=== PATIENT | female | born 1965 | race Caucasian/White ===

== ENCOUNTER 2023-12-25 11:45 | Outpatient (AMB) | payer BC, SELFPAY ==
--- NOTE | 2023-12-25 12:04 | HO.NEPHOV ---
HPI HPI Comments History of Present Illness Details I would the delight of seeing Mansi in consultation for proteinuria. She has hypertension for close to 28 years. She had been on losartan and metoprolol but her metoprolol had been change verapamil a while ago. She is thought to fatty liver. She has high BMI and has been struggling with weight. She has been having proteinuria for some time. Her renal functions have been stable. She does not have any microscopic hematuria, nephrolithiasis, peripheral arterial disease, renal artery stenosis, carotid stenosis, CVA, coronary artery disease, congestive heart failure or CVA. She denies any history of new bone or back pain or renal calculus. She denies any photosensitivity, skin rashes, epistaxis, recurrent sore throat, eye symptoms, oral ulcers, difficulty swallowing, nausea, vomiting, diarrhea, paroxysmal nocturnal dyspnea, orthopnea or pedal edema. She monitors her blood pressure closely and has been close to goal. She has no history of preeclampsia during her pregnancies. She has no family history proteinuria. She is concerned about her persistent proteinuria. She has been changing her dietary habits, trying to lose weight and exercise. [facility] Medical History (Updated 12/25/23 @ 14:51 by Agapito Ruby MD) Hypertension Persistent proteinuria Family History (Updated 12/25/23 @ 12:12 by Mary Alas MA) Father Diabetes Hypertension Heart disease Mother Hypertension Social History (Updated 12/25/23 @ 12:12 by Mary Alas MA) Alcohol intake: current Comment: Occasionally Patient Tobacco Use Status: Never used Tobacco Vital Signs 12/25/23 12:08 Height 5 ft 9 in Weight 278 lb BMI 41.0 BP 140/80 H Blood Pressure Location Lt brachial Position Sitting Pulse 87 Pulse Source Pulse Oximeter Pulse Oximetry (%) 97 Oxygen Delivery Method Room Air Physical Exam Vital Signs: Last Vital Signs Pulse 87 12/25/23 12:08 BP 140/80 H 12/25/23 12:08 Pulse Ox 97 12/25/23 12:08 Oxygen Delivery Method Room Air 12/25/23 12:08 BMI result Body Mass Index 41.0 Const General: comfortable and no acute distress Orientation/consciousness: patient oriented x3 HEENT Head: Yes normocephalic Mouth: Normal oral and palatal mucosa present Eyes EOM: EOMs intact bilaterally Neck Neck: Yes supple Resp Auscultation: clear to auscultation bilaterally Cardio Jugular venous distension: no JVD Rate: regular rate GI Palpation (GI): Soft to palpation Auscultation: normal bowel sounds General: Yes no CVA tenderness Back/Spine/Pelvis Back: no CVA tenderness Skin General skin exam: no rashes or lesions noted Neuro General: patient oriented x3 and moves all extremities Extrem General: Yes no pedal edema Assessment & Plan Assessment & Plan (1) Hypertension: Code(s): I10 - Essential (primary) hypertension Qualifiers: Hypertension type: primary hypertension Qualified Code(s): I10 - Essential (primary) hypertension (2) Persistent proteinuria: Code(s): R80.1 - Persistent proteinuria, unspecified Plan Mansi has persistent proteinuria. Her renal functions have been stable. She is on losartan and verapamil. I asked her to continue her current dose of losartan and change the verapamil to diltiazem 240 mg daily to take advantage of its anti proteinuric effects. She clearly needs to lose weight. Her proteinuria likely is either from secondary FSGS from obesity or due to longstanding hypertension. I have ordered blood work and urine studies including 24 hour urine for protein. I also have arranged ultrasound for kidney. Based on the data, she may need a renal biopsy, which I briefly discussed with the patient. She avoids nonsteroidal anti-inflammatories and maintain good hydration. I did not make any medication changes today. More than 50% of the time spent discussing about the etiologies, investigations and management strategies. She may need gastric sleeve surgery. Further management is pending evolving data. Follow-up appointment given. Answered all questions Orders: Orders Creatinine Today I10 - Essential (primary) hypertension, R80.1 - Persistent proteinuria, unspecified Calcium Today I10 - Essential (primary) hypertension, R80.1 - Persistent proteinuria, unspecified Anti DNA DS Antibody Today I10 - Essential (primary) hypertension, R80.1 - Persistent proteinuria, unspecified Myeloperoxidase Antibody Today I10 - Essential (primary) hypertension, R80.1 - Persistent proteinuria, unspecified Proteinase 3 PR3 Antibodies Today I10 - Essential (primary) hypertension, R80.1 - Persistent proteinuria, unspecified Immunofixation Pnl, Serum Today I10 - Essential (primary) hypertension, R80.1 - Persistent proteinuria, unspecified Phospholipase A2 Receptor Pnl Today I10 - Essential (primary) hypertension, R80.1 - Persistent proteinuria, unspecified Immunofixation, Random Urine Today I10 - Essential (primary) hypertension, R80.1 - Persistent proteinuria, unspecified US renal BI Today I10 - Essential (primary) hypertension, R80.1 - Persistent proteinuria, unspecified Hepatitis B Surface Antigen Today I10 - Essential (primary) hypertension, R80.1 - Persistent proteinuria, unspecified Hepatitis B Core Antibody Today I10 - Essential (primary) hypertension, R80.1 - Persistent proteinuria, unspecified Blood Urea Nitrogen Today I10 - Essential (primary) hypertension, R80.1 - Persistent proteinuria, unspecified Electrolytes Today I10 - Essential (primary) hypertension, R80.1 - Persistent proteinuria, unspecified Complement C4 Today I10 - Essential (primary) hypertension, R80.1 - Persistent proteinuria, unspecified Complement C3 Today I10 - Essential (primary) hypertension, R80.1 - Persistent proteinuria, unspecified Protein, 24 Hr Urine Group Today I10 - Essential (primary) hypertension, R80.1 - Persistent proteinuria, unspecified Medications: New diltiazem HCl ER 240 mg PO DAILY 30 days 30 caps 3RF Coding Level of Care Code New Pt Level 4 (25574) Diagnoses Primary hypertension I10 Hypertension type: primary hypertension Persistent proteinuria R80.1 Results Reviewed Nephrology Results: No Data to Display
[2023-12-25 12:08] VITALS: BP 140/80; PULSE 87; O2SAT 97; BMI 41.0
== END 2023-12-25 13:02 | disposition home or self-care (01) ==
PROVIDERS: PCP Internal Medicine; Visit Provider Internal Medicine Nephrology
DX: I10 Essential (primary) hypertension (principal); R80.1 Persistent proteinuria, unspecified
CPT/HCPCS: 99204

== ENCOUNTER → 2023-12-25 11:45 | Outpatient (BNVA) | payer BC, SELFPAY | PROVIDERS: PCP Internal Medicine; Visit Provider Internal Medicine Nephrology ==

== ENCOUNTER 2023-12-29 08:41 | Outpatient (REF) | payer BC, SELFPAY ==
--- NOTE | ~2023-12-29 | US_ITS ---
EXAMINATION: US RETROPERITONEAL LIMITED (RENAL ONLY) CLINICAL INFORMATION: Essential hypertension and proteinuria. COMPARISON: None available. TECHNIQUE: Real-time ultrasound of the bilateral kidneys, permanent documented images obtained FINDINGS: RIGHT KIDNEY: 14.4 x 5.8 x 6.7 cm (SAG x AP x TRV). Diffuse increased echogenicity to the renal parenchyma. Right kidney is lobulated with regions of cortical thinning. Prominent perinephric fat. No hydronephrosis or calculi. 6.7 x 4.6 x 7.9 cm upper pole cyst is seen. LEFT KIDNEY: 17 x 7.4 x 7.0 cm (SAG x AP x TRV). Diffuse increased echogenicity to the renal parenchyma. Left kidney is lobulated with areas of cortical thinning. No hydronephrosis or renal calculi. Multiple renal cysts are seen, in the upper pole measuring 1.2 x 1.4 x 2.2 cm and in the lower pole, 2.5 x 1.7 x 1.9 cm and 1.8 x 1.3 x 1.4 cm. US/US renal BI IMPRESSION: Enlarged, lobulated, echogenic kidneys with asymmetric cortical thinning/scarring bilaterally. Bilateral renal cysts.
== END 2023-12-29 08:42 | disposition home or self-care (01) ==
LOC: HO.HMGCX 08:41
PROVIDERS: PCP Internal Medicine; Visit Provider Internal Medicine Nephrology
DX: I10 Essential (primary) hypertension (principal); R80.1 Persistent proteinuria, unspecified
CPT/HCPCS: 76775

== ENCOUNTER 2024-01-25 09:10 | Outpatient (REF) | payer BC, SELFPAY ==
[2024-01-25 10:52] LABS: Protein mg/dL 36 mg/dL
[2024-01-25 10:55] LABS: Anion Gap 13 (12-20); Blood Urea Nitrogen 13 mg/dL (9-16); Calcium 9.7 mg/dL (8.4-10.2); Carbon Dioxide 27 mmol/L (22-29); Chloride 104 mmol/L (96-108); Estimated Glomerular Filt Rate > 60; Sodium 140 mmol/L (135-145)
[2024-01-25 13:22] LABS: Creatinine, 24Hr Urine 1.7 G/Day (1.0-2.0); Protein 24 Hr Urine 972 mg/Day (<150); Total Volume 24 Hour Urine 2700 mL
[2024-01-26 04:56] LABS: HBc Num1 0.12 S/CO (0.00-0.79); HBsAGNum1 0.28 S/CO (0.00-0.99); Hepatitis B Core Antibody Nonreactive (Nonreactive); Hepatitis B Surface Antigen Negative (Negative)
[2024-01-26 10:04] LABS: Complement C3 163 mg/dL (83-193)
[2024-01-27 14:28] LABS: IgA 260 mg/dL (47-310); IgG 1284 mg/dL (600-1640); IgM 136 mg/dL (50-300)
[2024-01-28 14:09] LABS: Anti DNA DS Antibody <1 IU/mL; Myeloperoxidase Antibody <1.0 AI; Proteinase 3 PR3 Antibodies <1.0 AI
[2024-01-29 00:23] LABS: Phospholipase A2 IgG ELISA <4 RU/mL; Phospholipase A2 IgG IFA NEGATIVE (NEGATIVE)
== END 2024-01-25 09:11 | disposition home or self-care (01) ==
LOC: HO.LAB 09:10
PROVIDERS: PCP Internal Medicine; Visit Provider Internal Medicine Nephrology
DX: I10 Essential (primary) hypertension (principal); R80.1 Persistent proteinuria, unspecified
CPT/HCPCS: 80051; 82310; 82565; 82784; 83520; 84156; 84520; 86021; 86160; 86225; 86255; 86334; 86335; 86704; 87340

== ENCOUNTER 2024-02-05 14:51 | Outpatient (AMB) | payer BC, SELFPAY ==
--- NOTE | 2024-02-05 15:02 | HO.NEPHOV ---
HPI HPI Comments History of Present Illness Details I would the delight of seeing Mansi in follow up of her proteinuria. She has H/O hypertension for close to 28 years. She had been on losartan and metoprolol but her metoprolol had been change verapamil which was changed to Diltiazem at the last visit. She is thought to fatty liver. She has high BMI and has been struggling with weight. She has been having proteinuria for some time. Her renal functions have been stable. She does not have any microscopic hematuria, nephrolithiasis, peripheral arterial disease, renal artery stenosis, carotid stenosis, CVA, coronary artery disease, congestive heart failure or CVA. She denies any history of new bone or back pain or renal calculus. She denies any photosensitivity, skin rashes, epistaxis, recurrent sore throat, eye symptoms, oral ulcers, difficulty swallowing, nausea, vomiting, diarrhea, paroxysmal nocturnal dyspnea, orthopnea or pedal edema. She monitors her blood pressure closely and has been close to goal. She has no history of preeclampsia during her pregnancies. She has no family history proteinuria. She is concerned about her persistent proteinuria. She has been changing her dietary habits, trying to lose weight and exercise. [facility] Medical History (Updated 12/25/23 @ 14:51 by Agapito Ruby MD) Hypertension Persistent proteinuria Family History Father Diabetes Hypertension Heart disease Mother Hypertension Social History Alcohol intake: current Comment: Occasionally Patient Tobacco Use Status: Never used Tobacco Vital Signs 02/05/24 15:03 Height 5 ft 9 in Weight 271 lb 2 oz BMI 40.0 BP 140/70 H Blood Pressure Location Rt brachial Position Sitting Pulse 63 Pulse Source Pulse Oximeter Pulse Oximetry (%) 96 Oxygen Delivery Method Room Air Physical Exam Vital Signs: Last Vital Signs Pulse 63 02/05/24 15:03 BP 140/70 H 02/05/24 15:03 Pulse Ox 96 02/05/24 15:03 Oxygen Delivery Method Room Air 02/05/24 15:03 BMI result Body Mass Index 40.0 Const General: comfortable and no acute distress Orientation/consciousness: patient oriented x3 HEENT Head: Yes normocephalic Mouth: Normal oral and palatal mucosa present Eyes EOM: EOMs intact bilaterally Neck Neck: Yes supple Resp Auscultation: clear to auscultation bilaterally Cardio Jugular venous distension: no JVD Rate: regular rate GI Palpation (GI): Soft to palpation Auscultation: normal bowel sounds General: Yes no CVA tenderness Back/Spine/Pelvis Back: no CVA tenderness Skin General skin exam: no rashes or lesions noted Neuro General: patient oriented x3 and moves all extremities Extrem General: Yes no pedal edema Assessment & Plan Assessment & Plan (1) Hypertension: Code(s): I10 - Essential (primary) hypertension Qualifiers: Hypertension type: primary hypertension Qualified Code(s): I10 - Essential (primary) hypertension (2) Persistent proteinuria: Code(s): R80.1 - Persistent proteinuria, unspecified Plan Mansi has persistent proteinuria. Last 24 hour urine collection showed 972 mg of protein in 24 hours. Her renal functions have been stable. She is on losartan and diltiazem. Her proteinuria workup so far has been negative. She may be having secondary FSGS and hypertensive nephrosclerosis. She likely will need a renal biopsy which I discussed in detail. We shall decide about it after the next random urine protein creatinine ratio. She clearly needs to lose weight. Ultrasound for kidney was unremarkable. She avoids nonsteroidal anti-inflammatories and maintain good hydration. I did not make any medication changes today. More than 50% of the time spent discussing about the etiologies, investigations and management strategies. She may need gastric sleeve surgery. Further management is pending evolving data. Follow-up appointment given. Answered all questions Orders: Orders Protein Creatinine Ratio, Ur 02/05/24 I10 - Essential (primary) hypertension, R80.1 - Persistent proteinuria, unspecified Coding Level of Care Code Est Pt Level 4 (80264) Diagnoses Primary hypertension I10 Hypertension type: primary hypertension Persistent proteinuria R80.1 Results Reviewed Nephrology Results: Sodium 140 mmol/L (135-145) 01/25/24 Potassium 4.0 mmol/L (3.3-5.1) 01/25/24 Chloride 104 mmol/L (96-108) 01/25/24 Carbon Dioxide 27 mmol/L (22-29) 01/25/24 BUN 13 mg/dL (9-16) 01/25/24 Creatinine 0.84 mg/dL (0.5-1.4) 01/25/24 Calcium 9.7 mg/dL (8.4-10.2) 01/25/24 Renal US 12/29/23
[2024-02-05 15:03] VITALS: BP 140/70; PULSE 63; O2SAT 96; BMI 40.0
== END 2024-02-05 15:40 | disposition home or self-care (01) ==
PROVIDERS: PCP Internal Medicine; Visit Provider Internal Medicine Nephrology
DX: I10 Essential (primary) hypertension (principal); R80.1 Persistent proteinuria, unspecified
CPT/HCPCS: 99214

== ENCOUNTER → 2024-02-05 14:51 | Outpatient (BNVA) | payer BC, SELFPAY | PROVIDERS: PCP Internal Medicine; Visit Provider Internal Medicine Nephrology ==

== ENCOUNTER 2024-05-12 08:04 | Outpatient (REF) | payer BC, SELFPAY ==
[2024-05-12 09:00] LABS: Creatinine Urine 114.37 mg/dL; Protein/Creatinine Ratio, Ur 0.86 (<0.2); Total Protein Urine Random 98 mg/dL (<12)
== END 2024-05-12 08:05 | disposition home or self-care (01) ==
LOC: HO.LAB 08:04
PROVIDERS: PCP Internal Medicine; Visit Provider Internal Medicine Nephrology
DX: I10 Essential (primary) hypertension (principal); R80.1 Persistent proteinuria, unspecified
CPT/HCPCS: 82570; 84156

== ENCOUNTER 2024-05-20 14:45 | Outpatient (AMB) | payer BC, SELFPAY ==
[2024-05-20 14:57] VITALS: BP 130/72; PULSE 88; O2SAT 96; BMI 40.5
--- NOTE | 2024-05-20 14:57 | HO.NEPHOV_ITS ---
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 She has H/O hypertension for close to 28 years. She had been on losartan and metoprolol but her metoprolol had been change verapamil which was changed to Diltiazem at the last visit. She is thought to fatty liver. She has high BMI and has been struggling with weight. She has been having proteinuria for some time. Her renal functions have been stable. She does not have any microscopic hematuria, nephrolithiasis, peripheral arterial disease, renal artery stenosis, carotid stenosis, CVA, coronary artery disease, congestive heart failure or CVA. She denies any history of new bone or back pain or renal calculus. She denies any photosensitivity, skin rashes, epistaxis, recurrent sore throat, eye symptoms, oral ulcers, difficulty swallowing, nausea, vomiting, diarrhea, paroxysmal nocturnal dyspnea, orthopnea or pedal edema. She monitors her blood pressure closely and has been close to goal. She has no history of preeclampsia during her pregnancies. She has no family history proteinuria. She is concerned about her persistent proteinuria. She has been changing her dietary habits, trying to lose weight and exercise [facility] Medical History (Updated 12/25/23 @ 14:51 by Agapito Ruby MD) Hypertension Persistent proteinuria Family History Father Diabetes Hypertension Heart disease Mother Hypertension Social History Alcohol intake: current Comment: Occasionally Patient Tobacco Use Status: Never used Tobacco Physical Exam Vital Signs: BMI result Body Mass Index 40.5 Const General: comfortable and no acute distress Orientation/consciousness: patient oriented x3 HEENT Head: Yes normocephalic Mouth: Normal oral and palatal mucosa present Eyes EOM: EOMs intact bilaterally Neck Neck: Yes supple Resp Auscultation: clear to auscultation bilaterally Cardio Jugular venous distension: no JVD Rate: regular rate GI Palpation (GI): Soft to palpation Auscultation: normal bowel sounds General: Yes no CVA tenderness Back/Spine/Pelvis Back: no CVA tenderness Skin General skin exam: no rashes or lesions noted Neuro General: patient oriented x3 and moves all extremities Extrem General: Yes no pedal edema Results Reviewed Nephrology Results: Sodium 140 mmol/L (135-145) 01/25/24 Potassium 4.0 mmol/L (3.3-5.1) 01/25/24 Chloride 104 mmol/L (96-108) 01/25/24 Carbon Dioxide 27 mmol/L (22-29) 01/25/24 BUN 13 mg/dL (9-16) 01/25/24 Creatinine 0.84 mg/dL (0.5-1.4) 01/25/24 Calcium 9.7 mg/dL (8.4-10.2) 01/25/24 Urine Creatinine 114.37 mg/dL 05/12/24 Protein/Creatinin Ratio 0.86 (<0.2) H 05/12/24 Renal US 12/29/23 Assessment & Plan Assessment & Plan (1) Hypertension: Code(s): I10 - Essential (primary) hypertension Category: Medical Qualifiers: Hypertension type: primary hypertension Qualified Code(s): I10 - Essential (primary) hypertension (2) Persistent proteinuria: Code(s): R80.1 - Persistent proteinuria, unspecified Category: Medical Plan Mansi has persistent proteinuria. Last 24 hour urine collection showed 972 mg of protein in 24 hours. Recent UP/C ratio was 0.86 Her renal functions have been stable. She is on losartan and diltiazem. Her proteinuria workup so far has been negative. She may be having secondary FSGS and hypertensive nephrosclerosis. She likely will need a renal biopsy which I discussed in detail. We shall decide about it after the next random urine protein creatinine ratio. She clearly needs to lose weight. Ultrasound for kidney was unremarkable. She avoids nonsteroidal anti-inflammatories and maintain good hydration. I i ncreased her Diltiazem to 360 mg daily( 240 mg AM and 120 mg PM). I did not make any other medication changes today. Further management is pending evolving data. Follow-up appointment given. Answered all questions Orders: Orders Creatinine Today I10 - Essential (primary) hypertension, R80.1 - Persistent proteinuria, unspecified Electrolytes Today I10 - Essential (primary) hypertension, R80.1 - Persistent proteinuria, unspecified Protein Creatinine Ratio, Ur Today I10 - Essential (primary) hypertension, R80.1 - Persistent proteinuria, unspecified Blood Urea Nitrogen Today I10 - Essential (primary) hypertension, R80.1 - Persistent proteinuria, unspecified Medications: Changed From diltiazem HCl ER (Tiadylt ER) 240 mg PO DAILY 90 days 90 caps 3RF To diltiazem HCl ER 360 mg (3 x 120 mg) PO DAILY 90 days 270 caps 3RF Coding Level of Care Code Est Pt Level 4 (47982) Diagnoses Primary hypertension I10 Hypertension type: primary hypertension Persistent proteinuria R80.1
== END 2024-05-20 15:24 | disposition home or self-care (01) ==
PROVIDERS: PCP Internal Medicine; Visit Provider Internal Medicine Nephrology
DX: I10 Essential (primary) hypertension (principal); R80.1 Persistent proteinuria, unspecified
CPT/HCPCS: 99214

== ENCOUNTER → 2024-05-20 14:45 | Outpatient (BNVA) | payer BC, SELFPAY | PROVIDERS: PCP Internal Medicine; Visit Provider Internal Medicine Nephrology ==

== ENCOUNTER 2024-11-01 09:09 | Outpatient (REF) | payer BC, SELFPAY ==
[2024-11-01 11:34] LABS: Anion Gap 13 (12-20); Blood Urea Nitrogen 10 mg/dL (9-16); Carbon Dioxide 27 mmol/L (22-29); Chloride 105 mmol/L (96-108); Estimated Glomerular Filt Rate > 60; Potassium 3.9 mmol/L (3.3-5.1); Sodium 141 mmol/L (135-145)
[2024-11-01 11:45] LABS: Creatinine Urine 166.16 mg/dL; Protein/Creatinine Ratio, Ur 1.17 (<0.2); Total Protein Urine Random 194 mg/dL (<12)
== END 2024-11-01 09:10 | disposition home or self-care (01) ==
LOC: HO.LAB 09:09
PROVIDERS: PCP Internal Medicine; Visit Provider Internal Medicine Nephrology
DX: R80.1 Persistent proteinuria, unspecified (principal); I10 Essential (primary) hypertension
CPT/HCPCS: 36415; 80051; 82565; 82570; 84156; 84520

== ENCOUNTER 2024-11-09 15:56 | Outpatient (AMB) | payer BC, SELFPAY ==
[2024-11-09 16:25] VITALS: BP 110/70; PULSE 84; O2SAT 97; BMI 38.9
--- NOTE | 2024-11-09 16:25 | HO.NEPHOV ---
Vital Signs 11/09/24 16:25 Height 5 ft 9 in Weight 263 lb 6 oz BMI 38.9 BP 110/70 Blood Pressure Location Rt brachial Position Sitting Pulse 84 Pulse Source Pulse Oximeter Pulse Oximetry (%) 97 Oxygen Delivery Method Room Air Intake Visit Reasons: Hypertension Communications Consultant Required: No Accompanied by: Self / Same As Patient Allergies No Known Allergies Allergy (Verified 11/09/24 16:27) HPI Comments Details: Mansi in follow up of her proteinuria. She has H/O hypertension for close to 29 years. She had been on losartan and metoprolol but her metoprolol had been change verapamil which was changed to Diltiazem at the last visit. She is thought to fatty liver. She has high BMI and has been struggling with weight. She has been started on Mounjaro and had some weight loss but has been having some GI side effects. She has been having proteinuria for some time. Her renal functions have been stable. She does not have any microscopic hematuria, nephrolithiasis, peripheral arterial disease, renal artery stenosis, carotid stenosis, CVA, coronary artery disease, congestive heart failure or CVA. She denies any history of new bone or back pain or renal calculus. She denies any photosensitivity, skin rashes, epistaxis, recurrent sore throat, eye symptoms, oral ulcers, difficulty swallowing, nausea, vomiting, diarrhea, paroxysmal nocturnal dyspnea, orthopnea or pedal edema. She monitors her blood pressure closely and has been close to goal. She has no history of preeclampsia during her pregnancies. She has no family history proteinuria. She is concerned about her persistent proteinuria. She has been changing her dietary habits, trying to lose weight and exercise better [facility] Medical History (Updated 12/25/23 @ 14:51 by Agapito Ruby MD) Hypertension Persistent proteinuria Family History Father Diabetes Hypertension Heart disease Mother Hypertension Social History Alcohol intake: current Comment: Occasionally Patient Tobacco Use Status: Never used Tobacco Review of Systems Const All systems reviewed & are unremarkable except as noted in HPI and below Physical Exam Vital Signs: Last Vital Signs Pulse 84 11/09/24 16:25 BP 110/70 11/09/24 16:25 Pulse Ox 97 11/09/24 16:25 Oxygen Delivery Method Room Air 11/09/24 16:25 BMI result Body Mass Index 38.9 Const General: comfortable and no acute distress Orientation/consciousness: patient oriented x3 HEENT Head: Yes normocephalic Mouth: Normal oral and palatal mucosa present Eyes EOM: EOMs intact bilaterally Neck Neck: Yes supple Resp Auscultation: clear to auscultation bilaterally Cardio Jugular venous distension: no JVD Rate: regular rate GI Palpation (GI): Soft to palpation Auscultation: normal bowel sounds General: Yes no CVA tenderness Back/Spine/Pelvis Back: no CVA tenderness Skin General skin exam: no rashes or lesions noted Neuro General: patient oriented x3 and moves all extremities Extrem General: Yes no pedal edema Results Reviewed Nephrology Results: Sodium 141 mmol/L (135-145) 11/01/24 Potassium 3.9 mmol/L (3.3-5.1) 11/01/24 Chloride 105 mmol/L (96-108) 11/01/24 Carbon Dioxide 27 mmol/L (22-29) 11/01/24 BUN 10 mg/dL (9-16) 11/01/24 Creatinine 0.88 mg/dL (0.5-1.4) 11/01/24 Calcium 9.7 mg/dL (8.4-10.2) 01/25/24 Urine Creatinine 166.16 mg/dL 11/01/24 Protein/Creatinin Ratio 1.17 (<0.2) H 11/01/24 Renal US 12/29/23 Assessment & Plan Assessment & Plan (1) Persistent proteinuria: Code(s): R80.1 - Persistent proteinuria, unspecified Category: Medical (2) Hypertension: Code(s): I10 - Essential (primary) hypertension Category: Medical Qualifiers: Hypertension type: primary hypertension Qualified Code(s): I10 - Essential (primary) hypertension Plan Mansi has persistent proteinuria. Last UP/C ratio was over a gram. Her renal functions have been stable. She is on losartan and diltiazem. Her proteinuria workup so far has been negative. She may be having secondary FSGS and hypertensive nephrosclerosis. I ordered a renal biopsy which I discussed in detail. She clearly needs to lose more weight. Ultrasound for kidney was unremarkable. She avoids nonsteroidal anti-inflammatories and maintain good hydration. She can continue current dose of Diltiazem 360 mg daily( 240 mg AM and 120 mg PM). I did not make any other medication changes today. Answered all questions Orders: Orders Complete Blood Count Auto Diff 11/09/24 R80.1 - Persistent proteinuria, unspecified Prothrombin Time INR 11/09/24 R80.1 - Persistent proteinuria, unspecified CT biopsy renal RT 11/09/24 I10 - Essential (primary) hypertension, R80.1 - Persistent proteinuria, unspecified Coding Level of Care Code Est Pt Level 4 (06170) Diagnoses Persistent proteinuria R80.1 Primary hypertension I10 Hypertension type: primary hypertension
== END 2024-11-09 16:56 | disposition home or self-care (01) ==
PROVIDERS: PCP Internal Medicine; Visit Provider Internal Medicine Nephrology
DX: R80.1 Persistent proteinuria, unspecified (principal); I10 Essential (primary) hypertension
CPT/HCPCS: 99214

== ENCOUNTER → 2024-11-09 15:56 | Outpatient (BNVA) | payer BC, SELFPAY | PROVIDERS: PCP Internal Medicine; Visit Provider Internal Medicine Nephrology ==

== ENCOUNTER 2024-12-16 07:52 | Outpatient (REF) | payer BC, SELFPAY ==
--- OUTSIDE RECORDS SUMMARY | 2024-12-16 07:55 | XMS_ITS | Clinical Summary ---
Author Organization [facility] ity Address [address] [place] [address] Care Team Providers Care Blasting Cap Assembler Name Role Phone Unavailable Primary Care Provider Unavailabl e Social History Tobacco Use Types Packs/Day Years Used Date Smoking Tobacco: Never Assessed Comments Unknown Sex and Gender Information Value Date Recorded Sex Assigned at Not on file Legal Sex Female 8:12 AM EST Gender Identity Not on file Sexual Orientation Not on file Plan of Treatment Health Maintenance Due Date Last Done Comments Breast Cancer Screening 1964 DTaP,Tdap,and Td Vaccines (1 - Tdap) 1983 Cervical Cancer Screening: P ap Smear 1985 Zoster Vaccines (1 of 2) 2014 Colorectal Cancer Screening: Colonoscopy 10/05/2022 Depression Screening 10/05/2022 HIV Screening 10/05/2022 Hepatitis C Screening 10/05/2022 Social Influencers of Health Screening 10/05/2022 COVID-19 Vaccine ( - 2023-2 5 season) 2024 Influenza Vaccine (#1) 2024 RSV Immunization Patients 60 + Years Old (1 - 1-dose 75+ series) 2039 HIB Vaccines Aged Out No longer eligi ble based on patient's age to complete this topic HPV Vaccines Aged Out No longer eligi ble based on patient's age to complete this topic Hepatitis A Vaccines Aged Out No long er eligible based on patient's age to complete this topic Hepatitis B Vaccines Aged Out No long er eligible based on patient's age to complete this topic IPV Vaccines Aged Out No longer eligi ble based on patient's age to complete this topic MMR Vaccines Aged Out No longer eligi ble based on patient's age to complete this topic Meningococcal ACWY Vaccine Aged Out N o longer eligible based on patient's age to complete this topic Pneumococcal Vaccine: Pediat rics (0 to 5 Years) and At-Risk Patients (6 to 64 Years) Aged Out No longer eligible b ased on patient's age to complete this topic RSV Immunization Patients Un macy 20 months Aged Out No longer eligible b ased on patient's age to complete this topic Varicella Vaccines Aged Out No longer eligible based on patient's age to complete this topic
[2024-12-16 08:02] LABS: MANUAL DIFF FLAG NO
[2024-12-16 08:37] LABS: Basophils Percent Auto 0.4 % (0-2); Eosinophils Absolute Auto 0.4 X10*3/uL (0.0-0.4); Eosinophils Percent Auto 4.2 % (0-4); Hematocrit 43.6 % (37.0-47.0); Hemoglobin 14.8 g/dl (12.0-16.0); Imm Gran Abs Auto 0.03 X10*3/uL (0.00-0.03); Imm Gran Pct Auto 0.4 % (0.0-0.4); Lymphocytes Absolute Auto 4.2 X10*3/uL (1.2-4.9); Lymphocytes Percent Auto 49.6 % (20-40); Mean Corpuscular HGB Conc 33.9 g/dl (31.0-35.0); Mean Corpuscular Volume 88.3 fL (80.0-98.0); Mean Platelet Volume 9.9 fL (9.4-12.3); Monocytes Absolute Auto 0.8 X10*3/uL (0.1-1.2); Monocytes Percent Auto 8.9 % (2-11); Neutrophils Absolute Auto 3.1 x10*3/uL (2.0-8.3); Neutrophils Percent Auto 36.5 % (45-73); Platelet Count 301 X10*3/uL (160-400); Red Blood Count 4.94 X10*6/uL (4.20-5.50); Red Cell Distribution Width 12.6 % (11.0-16.0); White Blood Count 8.4 X10*3/uL (4.8-10.8)
[2024-12-16 08:43] LABS: INTERNATIONAL NORM RATIO 0.9 (0.9-1.1); Prothrombin Time 10.5 SEC (10.9-12.4)
== END 2024-12-16 07:53 | disposition home or self-care (01) ==
LOC: HO.LAB 07:52
PROVIDERS: PCP Internal Medicine; Visit Provider Internal Medicine Nephrology
DX: R80.1 Persistent proteinuria, unspecified (principal)
CPT/HCPCS: 36415; 85025; 85610

== ENCOUNTER 2024-12-26 08:32 | Day surgery (SDC) | payer BC, SELFPAY ==
[2024-12-26] VITALS (15 sets, daily range): BP systolic 106–137; BP diastolic 60–80; PULSE 67–75; RESP 15–20; TEMP 36.3–36.6; O2SAT 93–100; BMI 17.3
--- NOTE | ~2024-12-26 | CT_ITS ---
Proteinuria. Hypertension. PROCEDURES: 1. Limited preprocedure CT of the abdomen. Permanent images saved in PACS. 2. CT-guided nontargeted biopsy of the left kidney. 3. Limited postprocedure CT of the abdomen. Permanent images saved in PACS. CLINICIANS: Tung Salinas PA-C MEDICATIONS: -Versed 1.5 mg, Fentanyl 75 mcg, and lidocaine 1% 10 mL SQ -Antibiotics: None -For additional details, please see nursing flowsheet. COMPLICATIONS: None ESTIMATED BLOOD LOSS: < 5 ml CONTRAST: None SPECIMENS: 3 x 18 g cores were placed in saline MODERATE SEDATION TIME: 25 min PROCEDURE NOTE: The procedure, risks, benefits, and alternatives were carefully explained to the patient and written informed consent was obtained. The patient was placed prone on the CT table. A timeout was performed. A limited CT of the abdomen was performed to localize the left kidney and choose appropriate needle entry and trajectory. The patient was prepped and draped in usual sterile fashion. The skin and deeper soft tissues were anesthetized with lidocaine. Under CT guidance, a 17 gauge trocar needle was advanced to the left lower pole of the kidney. An 18 gauge biopsy device was inserted through the trocar needle advanced into the left lower pole of the kidney. A total of 3, 18 gauge cores were performed. The specimen was placed in saline. A Gelfoam slurry was then administered through the trocar needle and into the perinephric space. The needle was removed. A dry dressing was applied and secured with Tegaderm. There were no immediate complications. The patient was stable after the procedure and was transferred to the post anesthesia care unit. The procedure was done under moderate sedation with a dedicated nurse for monitoring of vital signs. CT/CT biopsy renal LT Impression: CT-guided nontargeted left renal biopsy This procedure was performed by Tung Salinas PA-C and supervised by Dr. Hopkins. Electronically signed by: Ernesto Hopkins MD 12/26/2024 04:17 PM [facility]
[2024-12-26 09:46] LABS: Glucose, Whole Blood 88 mg/dL (60-115)
--- NOTE | 2024-12-26 10:28 | MHC.SHP ---
Pre-Procedural Eval Section A - 24 Hr Update-Section A only Date of Service: 12/26/24 Section B - Complete if H&P > 30 days Chief Complaint: HTN, Persistent proteinuria Details of Present Illness: 59 y/o female with HTN and proteinuria. Relevant Family History (Specify if Yes): No Relevant Social History: None Present Medications: see Short Stay Collaborative assessment Medical History: Significant History History of Previous Operations: No relevant previous surgery Allergies: Allergies Allergy/AdvReac Type Severity Reaction Status Date / Time No Known Allergies Allergy Verified 11/09/24 16:27 Review of Systems Sugical H&P ROS: Negative: Constitution, Cardiovascular, Respiratory and Gastrointestinal Exam Surgical H&P Exam: Normal: Heart, Normal: Lungs, Normal: Abdomen, Normal: Skin and Normal: Neurological Plan 59 y/o female with protenuria and HTN -Non targeted renal biopsy Time Spent With Patient Time: Total time managing care of this patient today ____ minutes.
[2024-12-26] MEDS: Midazolam HCl 2 MG/2 ML VIAL 1 MG IVPUSH ×2 (10:49→10:56)
[2024-12-26] MEDS: fentaNYL citrate/PF 100 MCG/2 ML VIAL 50 MCG IVPUSH (10:50)
[2024-12-26] MEDS: fentaNYL citrate/PF 100 MCG/2 ML VIAL 25 MCG IVPUSH (10:57)
== END 2024-12-26 13:56 | disposition home or self-care (01) ==
PROVIDERS: Physician Assistant Surgical; PCP Internal Medicine; Visit Provider Internal Medicine Nephrology
DX: R80.1 Persistent proteinuria, unspecified (principal); N26.9 Renal sclerosis, unspecified; N25.9 Disorder resulting from impaired renal tubular function, unspecified; I77.89 Other specified disorders of arteries and arterioles; I10 Essential (primary) hypertension; Z79.85 Long-term (current) use of injectable non-insulin antidiabetic drugs; Z79.899 Other long term (current) drug therapy
CPT/HCPCS: 50200; 77012; 82947; 86850; 86900; 86901; 88300; 88305; 88313; 88346; 88348; 88350; 99152; 99153; J2003; J2250; J2310; J3010

== ENCOUNTER → 2024-12-26 10:14 | Outpatient (BNV) | payer BC, SELFPAY | PROVIDERS: PCP Internal Medicine; Visit Provider Physician Assistant Surgical | DX: R80.9 Proteinuria, unspecified (principal) | CPT/HCPCS: 50200; 77012 ==

== ENCOUNTER 2025-02-03 15:29 | Outpatient (AMB) | payer BC, SELFPAY ==
--- NOTE | 2025-02-03 15:37 | HO.NEPHOV ---
Vital Signs 02/03/25 15:38 Height 5 ft 9 in Weight 255 lb 8 oz BMI 37.7 BP 124/80 Blood Pressure Location Lt brachial Position Sitting Pulse 82 Pulse Source Pulse Oximeter Pulse Oximetry (%) 96 Intake Visit Reasons: F/U-LVM Torpedo Shooter Required: No Accompanied by: Self / Same As Patient Allergies No Known Allergies Allergy (Verified 02/03/25 15:38) HPI Comments Details: Mansi in follow up of her proteinuria. She has H/O hypertension for close to 30 years. She had been on losartan and metoprolol but her metoprolol had been change verapamil which was changed to Diltiazem at the last visit. She is thought to fatty liver. She has high BMI and has been struggling with weight. She has been started on Mounjaro and had some weight loss but has been having some GI side effects. She has been having proteinuria for some time. Her renal functions have been stable. She does not have any microscopic hematuria, nephrolithiasis, peripheral arterial disease, renal artery stenosis, carotid stenosis, CVA, coronary artery disease, congestive heart failure or CVA. She denies any history of new bone or back pain or renal calculus. She denies any photosensitivity, skin rashes, epistaxis, recurrent sore throat, eye symptoms, oral ulcers, difficulty swallowing, nausea, vomiting, diarrhea, paroxysmal nocturnal dyspnea, orthopnea or pedal edema. She monitors her blood pressure closely and has been close to goal. She has no history of preeclampsia during her pregnancies. She has no family history proteinuria. She is concerned about her persistent proteinuria. She has been changing her dietary habits, trying to lose weight and exercise better. 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 REPLACED BY [facility] Medical History (Updated 12/25/23 @ 14:51 by Agapito Ruby MD) Hypertension Persistent proteinuria Surgical History History of tonsillectomy Family History Father Diabetes Hypertension Heart disease Mother Hypertension Social History Are you a primary progressive care manager to a significant other at home: No Do you presently have visiting nurse or other home services: No Alcohol intake: current Alcohol intake frequency: holidays/special occasions only Comment: Occasionally Patient Tobacco Use Status: Never used Tobacco Second Hand Smoke Exposure: No Review of Systems Const All systems reviewed & are unremarkable except as noted in HPI and below Physical Exam Vital Signs: Last Vital Signs Pulse 82 02/03/25 15:38 BP 124/80 02/03/25 15:38 Pulse Ox 96 02/03/25 15:38 BMI result Body Mass Index 37.7 Const General: comfortable and no acute distress Orientation/consciousness: patient oriented x3 HEENT Head: Yes normocephalic Mouth: Normal oral and palatal mucosa present Eyes EOM: EOMs intact bilaterally Neck Neck: Yes supple Resp Auscultation: clear to auscultation bilaterally Cardio Jugular venous distension: no JVD Rate: regular rate GI Palpation (GI): Soft to palpation Auscultation: normal bowel sounds General: Yes no CVA tenderness Back/Spine/Pelvis Back: no CVA tenderness Skin General skin exam: no rashes or lesions noted Neuro General: patient oriented x3 and moves all extremities Extrem General: Yes no pedal edema Results Reviewed Nephrology Results: Hgb 14.8 g/dl (12.0-16.0) 12/16/24 WBC 8.4 X10*3/uL (4.8-10.8) 12/16/24 Plt Count 301 X10*3/uL (160-400) 12/16/24 Sodium 141 mmol/L (135-145) 11/01/24 Potassium 3.9 mmol/L (3.3-5.1) 11/01/24 Chloride 105 mmol/L (96-108) 11/01/24 Carbon Dioxide 27 mmol/L (22-29) 11/01/24 BUN 10 mg/dL (9-16) 11/01/24 Creatinine 0.88 mg/dL (0.5-1.4) 11/01/24 Calcium 9.7 mg/dL (8.4-10.2) 01/25/24 Urine Creatinine 166.16 mg/dL 11/01/24 Protein/Creatinin Ratio 1.17 (<0.2) H 11/01/24 Renal US 12/29/23 Assessment & Plan Assessment & Plan (1) Hypertension: Code(s): I10 - Essential (primary) hypertension Category: Medical Qualifiers: Hypertension type: primary hypertension Qualified Code(s): I10 - Essential (primary) hypertension (2) Persistent proteinuria: Code(s): R80.1 - Persistent proteinuria, unspecified Category: Medical Plan Mansi has persistent proteinuria. Last UP/C ratio was over a gram. Her renal functions have been stable. She is on losartan and diltiazem. Her proteinuria workup was negative. 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 She clearly needs to lose more weight. Ultrasound for kidney was unremarkable. She avoids nonsteroidal anti-inflammatories and maintain good hydration. She can continue current dose of Diltiazem 360 mg daily( 240 mg AM and 120 mg PM) as well as losartan. I plan to initiate her on Jardiance with time. I did not make any other medication changes today. 24 hour urine ordered in 6 months; Answered all questions. F/U given Orders: Orders Protein, 24 Hr Urine Group 6 Months I10 - Essential (primary) hypertension, R80.1 - Persistent proteinuria, unspecified Coding Level of Care Code Est Pt Level 4 (56673) Diagnoses Primary hypertension I10 Hypertension type: primary hypertension Persistent proteinuria R80.1
[2025-02-03 15:38] VITALS: BP 124/80; PULSE 82; O2SAT 96; BMI 37.7
--- OUTSIDE RECORDS SUMMARY | 2025-02-03 16:39 | XMS_ITS | Clinical Summary ---
Author Organization [facility] ity Address [address] [place] [address] Care Team Providers Care Plumbing And Heating Mechanic Name Role Phone Unavailable Primary Care Provider [...] Cervical Cancer Screening: P ap Smear 1985 Pneumococcal Vaccine: 50+ Ye ars (1 of 1 - PCV) 2014 Zoster Vaccines (1 of 2) 2014 Colorectal Cancer Screening: Colonoscopy 10/05/2022 Depression Screening 10/05/2022 HIV Screening 10/05/2022 Hepatitis C Screening 10/05/2022 Social Influencers of Health Screening 10/05/2022 COVID-19 Vaccine ( - 2023-2 5 season) 2024 Influenza Vaccine (#1) 2024 RSV Immunization Adult Patie nts (1 - 1-dose 75+ series) 2039 HIB [...] patient's age to complete this topic Meningococcal B Vacine Aged Out No lo nger eligible based on patient's age to complete [...]
== END 2025-02-03 16:14 | disposition home or self-care (01) ==
LOC: HO.HKA 15:29
PROVIDERS: PCP Internal Medicine; Visit Provider Internal Medicine Nephrology
DX: I10 Essential (primary) hypertension (principal); R80.1 Persistent proteinuria, unspecified
CPT/HCPCS: 99214

== ENCOUNTER 2025-07-17 08:40 | Outpatient (REF) | payer BC, SELFPAY ==
--- OUTSIDE RECORDS SUMMARY | 2025-07-17 09:55 | XMS_ITS | Clinical Summary ---
Author Organization [facility] Address [address] [place] [address] Care Team Providers Care Integrated Campaign Manager Name Role Phone Unavailable Primary Care Provider Unavailabl e Social History Tobacco Use Types Packs/Day Years Used Date Smoking Tobacco: Never Assessed Comments Unknown Sex and Gender Information Value Date Recorded Sex Assigned at Not on file Legal Sex Female 5:14 PM EDT Gender Identity Not on file Sexual Orientation Not on file Plan of Treatment Health Maintenance Due Date Last Done Comments Hepatitis C Virus Screening 1964 HIV Screening 1977 DTaP/Tdap/Td Vaccines (1 - Tdap) 1983 Pneumococcal Vaccines 50+ (1 of 1 - PCV) 2014 Zoster (Shingles) Vaccine (1 of 2) 2014 COVID-19 Vaccine (1 - 2023-2 5 season) 2025 RSV Vaccine 60 years and old er and Patients (1 - 1-dose 75+ series) 2039 Hepatitis B Vaccines Aged Out No long er eligible based on patient's age to complete this topic
--- OUTSIDE RECORDS SUMMARY | 2025-07-17 09:55 | XMS_ITS | Clinical Summary ---
Author Organization [facility] ity Address [address] [place] [address] Care Team Providers Care Armor Officer Name Role Phone Unavailable Primary Care Provider [...] 2) 2014 Colorectal Cancer Screening: Colonoscopy 10/05/2022 HIV Screening 10/05/2022 Hepatitis C Screening 10/05/2022 Social Influencers of Health Screening 10/05/2022 Depression Screening 11/02/2024 COVID-19 Vaccine (1 - 2023-2 5 season) 2025 Influenza Vaccine (#1) 2025 RSV Immunization Adult Patie nts (1 - [...] age to complete this topic Meningococcal B Vaccine Aged Out No l onger eligible based on patient's age to complete this topic RSV Immunization Patients Un macy 20 months Aged Out No longer eligible b ased on patient's age to complete this topic Varicella Vaccines Aged Out No longer eligible based on patient's age to complete this topic
[2025-07-17 10:17] LABS: Creatinine, mg/dL 58.07
[2025-07-17 10:40] LABS: Total Volume 24 Hour Urine 3025 mL
== END 2025-07-17 08:41 | disposition home or self-care (01) ==
LOC: HO.LNP 08:40
PROVIDERS: Visit Provider Internal Medicine Nephrology
DX: I10 Essential (primary) hypertension (principal); R80.1 Persistent proteinuria, unspecified
CPT/HCPCS: 84156

== ENCOUNTER 2025-08-02 15:26 | Outpatient (AMB) | payer BC, SELFPAY ==
--- NOTE | 2025-08-02 15:35 | HO.NEPHOV_ITS ---
Vital Signs 08/02/25 15:37 Height 5 ft 9 in Weight 253 lb 8 oz BMI 37.4 BP 120/70 Blood Pressure Location Lt brachial Position Sitting Intake Visit Reasons: 6 MO FU-LVM Account Executive Sales Representative Required: No Accompanied by: Self / Same As Patient Allergies No Known Allergies Allergy (Verified 08/02/25 15:37) HPI Comments Details: Mansi in follow up of her proteinuria. She has H/O hypertension for close to 30 years. She had been on losartan and metoprolol but her metoprolol had been change verapamil which was changed to Diltiazem at the last visit. She is thought to fatty liver. She has high BMI and has been struggling with weight. She has been started on Mounjaro and had some weight loss but has been having some GI side effects. She has been having proteinuria for some time. Her renal functions have been stable. She does not have any microscopic hematuria, nephrolithiasis, peripheral arterial disease, renal artery stenosis, carotid stenosis, CVA, coronary artery disease, congestive heart failure or CVA. She denies any history of new bone or back pain or renal calculus. She denies any photosensitivity, skin rashes, epistaxis, recurrent sore throat, eye symptoms, oral ulcers, difficulty swallowing, nausea, vomiting, diarrhea, paroxysmal nocturnal dyspnea, orthopnea or pedal edema. She monitors her blood pressure closely and has been close to goal. She has no history of preeclampsia during her pregnancies. She has no family history proteinuria. She is concerned about her persistent proteinuria. She has been changing her dietary habits, trying to lose weight and exercise better. 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 [facility] Medical History (Updated 12/25/23 @ 14:51 by Agapito Ruby MD) Hypertension Persistent proteinuria Surgical History History of tonsillectomy Family History Father Diabetes Hypertension Heart disease Mother Hypertension Social History Are you a primary adult day care worker to a significant other at home: No Do you presently have visiting nurse or other home services: No Alcohol intake: current Alcohol intake frequency: holidays/special occasions only Comment: Occasionally Patient Tobacco Use Status: Never used Tobacco Second Hand Smoke Exposure: No Review of Systems Const All systems reviewed & are unremarkable except as noted in HPI and below Physical Exam Vital Signs: BMI result Body Mass Index 37.4 Const General: comfortable and no acute distress Orientation/consciousness: patient oriented x3 HEENT Head: Yes normocephalic Mouth: Normal oral and palatal mucosa present Eyes EOM: EOMs intact bilaterally Neck Neck: Yes supple Resp Auscultation: clear to auscultation bilaterally Cardio Jugular venous distension: no JVD Rate: regular rate GI Palpation (GI): Soft to palpation Auscultation: normal bowel sounds General: Yes no CVA tenderness Back/Spine/Pelvis Back: no CVA tenderness Skin General skin exam: no rashes or lesions noted Neuro General: patient oriented x3 and moves all extremities Extrem General: Yes no pedal edema Results Reviewed Nephrology Results: Hgb, (12.0-16.0) 14.8 g/dl 12/16/24 WBC, (4.8-10.8) 8.4 X10*3/uL 12/16/24 Plt Count, (160-400) 301 X10*3/uL 12/16/24 Sodium, (135-145) 141 mmol/L 11/01/24 Potassium, (3.3-5.1) 3.9 mmol/L 11/01/24 Chloride, (96-108) 105 mmol/L 11/01/24 Carbon Dioxide, (22-29) 27 mmol/L 11/01/24 BUN, (9-16) 10 mg/dL 11/01/24 Creatinine, (0.5-1.4) 0.88 mg/dL 11/01/24 Urine Creatinine 166.16 mg/dL 11/01/24 Protein/Creatinin Ratio, (<0.2) 1.17 H 11/01/24 Renal US 12/29/23 Assessment & Plan Assessment & Plan (1) Hypertension: Code(s): I10 - Essential (primary) hypertension Category: Medical Qualifiers: Hypertension type: primary hypertension Qualified Code(s): I10 - Essential (primary) hypertension (2) Persistent proteinuria: Code(s): R80.1 - Persistent proteinuria, unspecified Category: Medical Plan Mansi has persistent proteinuria. Last UP/C ratio was over a gram. Her renal functions have been stable. She is on losartan and diltiazem. Her proteinuria workup was negative. 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 She clearly needs to lose more weight. Ultrasound for kidney was unremarkable. She avoids nonsteroidal anti- inflammatories and maintain good hydration. She can continue current dose of Diltiazem 360 mg daily( 240 mg AM and 120 mg PM) as well as losartan. She is on Mounjaro. I plan to initiate her on Jardiance with time. I did not make any other medication changes today. 24 hour urine reviewed ; Answered all questions. F/U given Orders: Orders Creatinine 6 Months I10 - Essential (primary) hypertension, R80.1 - Persistent proteinuria, unspecified Blood Urea Nitrogen 6 Months I10 - Essential (primary) hypertension, R80.1 - Persistent proteinuria, unspecified Electrolytes 6 Months I10 - Essential (primary) hypertension, R80.1 - Persistent proteinuria, unspecified Protein Creatinine Ratio, Ur 6 Months I10 - Essential (primary) hypertension, R80.1 - Persistent proteinuria, unspecified Coding Level of Care Code Est Pt Level 4 (30744) Diagnoses Primary hypertension I10 Hypertension type: primary hypertension Persistent proteinuria R80.1
[2025-08-02 15:37] VITALS: BP 120/70; BMI 37.4
--- OUTSIDE RECORDS SUMMARY | 2025-08-02 16:19 | XMS_ITS | Clinical Summary ---
Author Organization [facility] Address [address] [place] [address] Care Team Providers Care Veneer Glue Jointer Feedback Name Role Phone Unavailable Primary Care Provider [...]
--- OUTSIDE RECORDS SUMMARY | 2025-08-02 16:19 | XMS_ITS | Clinical Summary ---
Author Organization [facility] ity Address [address] [place] [address] Care Team Providers Care Lens Polisher Name Role Phone Unavailable Primary Care Provider [...] Last Done Comments Breast Cancer Screening 1965 Colorectal Cancer Screening: Colonoscopy 1964 DTaP,Tdap,and Td Vaccines (1 - Tdap) 1983 Cervical Cancer Screening: P ap Smear 1985 Pneumococcal Vaccine: 50+ Ye ars (1 of 1 - PCV) 2014 Zoster Vaccines (1 of 2) 2014 HIV Screening 10/05/2022 Hepatitis C Screening 10/05/2022 [...]
== END 2025-08-02 16:02 | disposition home or self-care (01) ==
LOC: HO.HKA 15:27
PROVIDERS: PCP Internal Medicine; Visit Provider Internal Medicine Nephrology
DX: I10 Essential (primary) hypertension (principal); R80.1 Persistent proteinuria, unspecified
CPT/HCPCS: 99214